=== PATIENT | male | born 1950 | race Caucasian/White ===

== ENCOUNTER 2018-09-11 12:02 | Emergency (ER) | payer MEDICAID ==
[~2018-09-11] VITALS: Ht 193 cm; Wt 106.1 kg
[2018-09-11 12:15] VITALS: BP 132/87
[2018-09-11] MEDS ORDERED: buprenorphine/naloxone 8mg/2mg SL tablet SL ONE ×2 (14:00→14:55)
[2018-09-11] MEDS ORDERED: buprenorphine/naloxone 8mg/2mg SL tablet SL SCH (14:00)
[2018-09-11] MEDS ORDERED: buprenorphine/naloxone 8mg/2mg SL tablet SL STA (15:25)
[2018-09-12] MEDS ORDERED: NALO4SPR (14:08)
== END 2018-09-11 16:16 | disposition home or self-care (01) ==
LOC: ER 12:03
DX: F11.23 Opioid dependence with withdrawal (principal); G89.29 Other chronic pain; M54.2 Cervicalgia; M25.561 Pain in right knee; M25.562 Pain in left knee; M25.579 Pain in unspecified ankle and joints of unspecified foot; Z88.8 Allergy status to other drugs, medicaments and biological substances
CPT/HCPCS: 71045; 99283

== ENCOUNTER 2018-09-12 13:50 | Emergency (ER) | payer MEDICAID ==
[~2018-09-12] VITALS: Ht 185.4 cm; Wt 104.5 kg
[2018-09-12] MEDS ORDERED: buprenorphine/naloxone 8mg/2mg SL tablet SL STA ×2 (14:02→14:43)
[2018-09-12] MEDS ORDERED: NALO4SPR (14:08)
[2018-09-12 15:21] VITALS: BP 156/101
== END 2018-09-12 15:23 | disposition home or self-care (01) ==
LOC: ER 13:51
DX: F11.23 Opioid dependence with withdrawal (principal); R10.30 Lower abdominal pain, unspecified; G89.29 Other chronic pain; K92.1 Melena; Z88.5 Allergy status to narcotic agent; Z88.8 Allergy status to other drugs, medicaments and biological substances; Z79.899 Other long term (current) drug therapy
CPT/HCPCS: 99283